=== PATIENT | female | born 1940 | race Caucasian/White ===

== ENCOUNTER 2023-12-31 16:13 | Emergency (ER) | payer OTHER, MEDICARE ==
[~2023-12-31] VITALS: Ht 157.5 cm; Wt 67.3 kg
[2023-12-31] MEDS ORDERED: MELOXICAM15 MG PO (16:52)
[2023-12-31] MEDS ORDERED: ESZOPICLONE3 MG PO (16:53)
[2023-12-31] MEDS ORDERED: VESICARE10 MG PO (16:54)
[2023-12-31] MEDS ORDERED: ESCITALOPRAM20 MG PO (16:54)
[2023-12-31] MEDS ORDERED: SIMVASTATIN20 M1 PO (16:55)
[2023-12-31] MEDS ORDERED: Home HYDROcodone/Acetaminophen 5/325 MG #4 TABS/PACK PO ONE (19:30)
[2023-12-31 19:37] VITALS: BP 151/101
== END 2023-12-31 19:37 | disposition home or self-care (01) ==
LOC: ED 16:13
DX: S92.415A Nondisplaced fracture of proximal phalanx of left great toe, initial encounter for closed fracture (principal); X50.1XXA Overexertion from prolonged static or awkward postures, initial encounter; Y92.810 Car as the place of occurrence of the external cause
CPT/HCPCS: L4386